=== PATIENT | male | born 1950 | race Caucasian/White ===

== ENCOUNTER 2023-07-04 17:04 | Observation (INO) | payer OTHER, MEDICARE ==
[2023-07-04 17:29] VITALS: BMI 30.5
[2023-07-04] MEDS ORDERED: HYDROMORPHONE HCL 1 MG/ML INJ IV PRN (17:33)
[2023-07-04] MEDS: METRONIDAZOLE 500mg IVPB 500 MG/100 ML BAG IV SCH ×2 (17:51→23:52)
[2023-07-04] MEDS ORDERED: ONDANSETRON 4 MG (ODT) TAB PO PRN (18:00)
[2023-07-04] MEDS ORDERED: ONDANSETRON 4 MG/2 ML VIAL IV PRN (18:00)
[2023-07-04] MEDS ORDERED: ACETAMINOPHEN 325 MG TABLET PO PRN (18:00)
[2023-07-04] MEDS ORDERED: DIPHENHYDRAMINE 25 MG TAB/CAP PO PRN (18:00)
[2023-07-04] MEDS ORDERED: POLYETHYL GLY 3350 17 GM/DOSE PO PRN (18:00)
[2023-07-04] MEDS ORDERED: NACHLORIDE 0.45% 1,000 ML IV SCH (18:00)
[2023-07-04] MEDS ORDERED: LOPERAMIDE HCL 2 MG CAPSULE PO PRN (18:00)
[2023-07-04] MEDS: CIPROFLOXACIN 400mg IV 400 MG/200 ML BAG IV SCH (20:47)
[2023-07-04] MEDS: TAMSULOSIN 0.4 MG SR CAP PO SCH (20:58)
[2023-07-04] MEDS: cloNIDine HCL 0.1 MG TAB PO SCH (21:00)
[2023-07-04] MEDS ORDERED: ATORVASTATIN 20 MG TAB PO SCH (21:00)
[2023-07-04 21:30] LABS: Bilirubin Direct 0.3 mg/dL (0-0.2); Bilirubin Total 1.3 mg/dL (0.2-1.0); Magnesium 2.1 mg/dL (1.6-2.4); Potassium 3.6 mEq/L (3.5-5.1); Protein, Total 7.6 g/dL (6.4-8.2)
[2023-07-04 21:34] LABS: Protime INR 1.07
[2023-07-04 21:44] LABS: Absolute Lymphocytes (CBC) 2.1 K/uL (0.7-4.9); Hematocrit 45.1 % (39.6-49.0); Lymphocytes % 21.1 % (15.3-44.8); MCV 93.7 fL (80-100); MPV 8.7 fL (7.6-11.3); Platelets 185 thou/uL (152-406); RBC Red Blood Cell Count 4.81 M/uL (4.33-5.43)
--- NOTE | 2023-07-04 21:50 | RAD REPORT ---
EXAM DESCRIPTION: RAD - Chest Pa And Lat (2 Views) - 07/04/2023 9:43 pm CLINICAL HISTORY: abdominal pain Chest pain. TECHNIQUE: PA and lateral views of the chest were obtained. FINDINGS: The lungs are hyperexpanded compatible with COPD. The heart is upper limit of normal in si ze. No fracture or aggressive bony process. IMPRESSION: COPD without acute process identified. The USPSTF recommends annual screening for lung cancer with low-dose CT (LDCT) in adults aged 50 to 8 0 years who have a 20 pack-year smoking history and currently smoke or have quit within the past 15 y ears.
[2023-07-04 21:58] LABS: Thyroid Stimulating Hormone 1.52 uIU/mL (0.358-3.740)
--- NOTE | 2023-07-04 22:10 | RAD REPORT ---
EXAM DESCRIPTION: CT - Abdomen Pelvis W/Wo Contrast - 07/04/2023 9:57 pm CLINICAL HISTORY: abdominal pain COMPARISON: No comparisons TECHNIQUE: Axial non-contrast CT imaging was performed. Following this, venous phase contrast enhanc ed imaging through the abdomen and pelvis was performed with coronal and sagittal reformatted images. All CT scans are performed using dose optimization technique as appropriate and may include automated exposure control or mA/KV adjustment according to patient size. FINDINGS: The lower lung wang are clear. The liver, spleen, pancreas and adrenal glands are normal. The non-contrast portion of the study does not demonstrate any urinary tract stones. No hydronephrosi s is seen in either kidney. The post-contrast portion of the examination fails to show a concerning renal mass or perinephric abn ormality. Moderate stool is seen throughout the colon. Normal appendix. Prostate gland is mildly prom inent projects into the the bladder base. No bowel obstruction, free fluid or abscess. No fracture or aggressive marrow process is seen. IMPRESSION: No acute or worrisome abnormality is detected.
[2023-07-05 04:18] LABS: Absolute Lymphocytes (CBC) 1.8 K/uL (0.7-4.9); MCV 92.6 fL (80-100); MPV 9.1 fL (7.6-11.3); Platelets 162 thou/uL (152-406); RBC Red Blood Cell Count 4.22 M/uL (4.33-5.43)
[2023-07-05 04:29] LABS: Potassium 4.1 mEq/L (3.5-5.1)
[2023-07-05] MEDS: TAMSULOSIN 0.4 MG SR CAP PO SCH (08:46)
[2023-07-05] MEDS: cloNIDine HCL 0.1 MG TAB PO SCH (08:47)
[2023-07-05] MEDS: CIPROFLOXACIN 400mg IV 400 MG/200 ML BAG IV SCH (08:49)
[2023-07-05] MEDS: METRONIDAZOLE 500mg IVPB 500 MG/100 ML BAG IV SCH (08:50)
[2023-07-05] MEDS ORDERED: ENOXAPARIN 40 MG/0.4 ML SQ SCH (09:00)
[2023-07-05] MEDS ORDERED: BENAZEPRIL 20 MG TAB PO SCH (09:00)
[2023-07-05] MEDS ORDERED: AMLODIPINE 10 MG TAB PO SCH (09:00)
[2023-07-05] MEDS ORDERED: CLOPIDOGREL 75 MG TABLET PO SCH (09:00)
[2023-07-05] MEDS ORDERED: ASPIRIN 81 MG CHEWABLE TABLET PO SCH (09:00)
--- NOTE | 2023-07-05 12:43 | P.DS ---
Admission Date: 07/04/23 Discharge Date: 07/05/23 Disposition: ROUTINE DISCHARGE Discharge Condition: [facility] Hospital Course: CHASITY CONTINUES TO HAVE SOME PAIN BUT NOT TENDER. HE HAS CONSTIPATION AND WILL GET ENEMA. HE HAS NO STONES OR ANY VISIBLE INFECTION IN ABDOMEN. FU IN OFFICE IN A WEEK. Vital Signs/Physical Exam: Temp Pulse Resp BP Pulse Ox 98.4 F 58 18 131/68 99 07/05/23 08:00 07/05/23 08:48 07/05/23 08:00 07/05/23 08:48 07/05/23 08:00 Laboratory Data at Discharge: WBC 8.00 thou/uL (4.3-10.9) 07/05/23 02:56 Hgb 13.5 g/dL (13.6-17.9) L D 07/05/23 02:56 Hct 39.0 % (39.6-49.0) L 07/05/23 02:56 Plt Count 162 thou/uL (152-406) 07/05/23 02:56 PT 11.7 SECONDS (9.5-12.5) 07/04/23 20:52 INR 1.07 07/04/23 20:52 APTT 28.8 SECONDS (24.3-36.9) 07/04/23 20:52 Sodium 138 mEq/L (136-145) 07/05/23 02:56 Potassium 4.1 mEq/L (3.5-5.1) D 07/05/23 02:56 BUN 19 mg/dL (7-18) H 07/05/23 02:56 Creatinine 1.44 mg/dL (0.70-1.30) H 07/05/23 02:56 Glucose 86 mg/dL (74-106) 07/05/23 02:56 Phosphorus 3.0 mg/dL (2.5-4.9) 07/04/23 20:52 Magnesium 2.1 mg/dL (1.6-2.4) 07/04/23 20:52 Total Bilirubin 1.3 mg/dL (0.2-1.0) H 07/04/23 20:52 AST 19 U/L (15-37) 07/04/23 20:52 ALT 23 U/L (16-61) 07/04/23 20:52 Alkaline Phosphatase 76 U/L (45-117) 07/04/23 20:52 Home Medications: Amlodipine Besylate/Benazepril [Amlodipine-Benazepril 10-20 mg] 1 each PO DAILY 07/04/23 Aspirin Chewable [Aspirin Chewable*] 81 mg PO DAILY 07/04/23 Atorvastatin Calcium [Lipitor*] 20 mg PO BEDTIME 07/04/23 Clonidine HCl [Catapres*] 0.2 mg PO BID 07/04/23 Clopidogrel Bisulfate [Plavix*] 75 mg PO DAILY 07/04/23 Tamsulosin [Flomax*] 0.4 mg PO BID 07/04/23 Ciprofloxacin HCl [Cipro 500 MG Tablet] 500 mg PO BID #10 tab 07/05/23 Metronidazole 500 mg PO BID #10 07/05/23 New Medications: Ciprofloxacin HCl [Cipro 500 MG Tablet] 500 mg PO BID #10 tab Metronidazole 500 mg PO BID #10 Followup: Santos Lloyd MD [Primary Care Provider] -
[2023-07-05 13:00] VITALS: BP 111/60; TEMP 98.1
[2023-07-08 20:38] LABS: Vitamin D 1,25-Dihydroxy Total 32 pg/mL (18-72); Vitamin D,1,25-OH2, D2 <8 pg/mL
== END 2023-07-05 13:48 | disposition home or self-care (01) ==
LOC: 2ND 17:04
PROVIDERS: ADMIT Internal Medicine; ATTEND Internal Medicine
DX: R10.9 Unspecified abdominal pain (principal); K59.00 Constipation, unspecified; K57.92 Diverticulitis of intestine, part unspecified, without perforation or abscess without bleeding; K21.9 Gastro-esophageal reflux disease without esophagitis; I10 Essential (primary) hypertension; N40.0 Benign prostatic hyperplasia without lower urinary tract symptoms; N18.30 Chronic kidney disease, stage 3 unspecified
CPT/HCPCS: 87040; 85025 ×2; 80048 ×2; 36415 ×2; 83735; 84100; 85610; 80076; 85730; 82652; 84443; 82607; 74178; 71046; Q9967; J1650; J0744 ×2; G0379; G0378 ×2